=== PATIENT | female | born 1995 | race American Indian/Alaskan Native ===

== ENCOUNTER 2018-07-17 04:51 | Emergency (ER) | payer SELFPAY ==
[2018-07-17 05:12] VITALS: BP 145/71
[2018-07-17] MEDS ORDERED: TYLENOL PO ONE (05:12)
[2018-07-17] MEDS ORDERED: ZOFRAN ODT PO ONE (05:12)
== END 2018-07-17 05:22 | disposition left against medical advice (07) ==
LOC: ED 04:51
DX: J11.1 Influenza due to unidentified influenza virus with other respiratory manifestations (principal); Z53.21 Procedure and treatment not carried out due to patient leaving prior to being seen by health care provider
CPT/HCPCS: Q0162